=== PATIENT | female | born 1965 | race African-American/Black ===

== ENCOUNTER → 2016-10-27 | Outpatient (CLI) | payer BC ==
--- NOTE | 2016-10-27 16:18 | RAD ---
Right hip, 2 views, 10/27/2016: History: Hip strain No fracture or dislocation is identified. The hip joint space is well-preserved. Lower pelvic calcifications probably represent a combination of phleboliths and perhaps a uterine fibroid calcification. IMPRESSION: No acute right hip abnormality is detected.
== END | disposition home or self-care (01) ==
LOC: RAD 15:40
PROVIDERS: ATTEND Family Medicine
DX: S76.011A Strain of muscle, fascia and tendon of right hip, initial encounter (principal); X58.XXXA Exposure to other specified factors, initial encounter; Y93.89 Activity, other specified; Y92.89 Other specified places as the place of occurrence of the external cause; Y99.8 Other external cause status
CPT/HCPCS: 73502

== ENCOUNTER → 2016-11-17 | Outpatient (CLI) | payer BC ==
--- NOTE | 2016-11-17 12:07 | KCIC ---
MRI of the lumbar spine without contrast 11/17/2016 CLINICAL HISTORY: Low back pain which radiates down the right leg for the last month. TECHNIQUE: Unenhanced T1-weighted, T2-weighted and inversion recovery sagittal and T1 weighted and T2 weighted axial images of the lumbar spine were obtained. FINDINGS: The alignment of the lumbar vertebrae is within normal limits. The patient has transitional vertebral anatomy. For the purposes of this dictation, the transitional vertebrae will be referred to by the letter T. A hypoplastic disc is seen at T-S1. Degenerative signal changes are seen involving the L4-5 and L5-T discs. The marrow signal of the visualized bony structures is within normal limits. The conus medullaris is normal in morphology, position, and signal characteristics. The L1-2, L2-3 and L3-4 disc spaces are within normal limits. At the L4-5 disc space there is mild generalized disc bulge. Degenerative changes are seen involving the facet joints bilaterally. There is moderate ligament flavum hypertrophy bilaterally. These findings when combined result in mild central spinal canal stenosis. No neural foraminal stenosis is seen. At the L5-T disc space there is a mild generalized disc bulge. Degenerative changes involve the facet joints bilaterally. There is mild ligamentum flavum hypertrophy. These findings when combined do not result in significant central spinal canal or neural foraminal stenosis. The T-S1 disc space is within normal limits. IMPRESSION: 1. The patient has transitional vertebral anatomy as outlined above. 2. The changes of degenerative disc disease are seen involving the lower lumbar spine. These findings result in mild central spinal canal stenosis at L4-5. No neural foraminal stenosis is seen. Electronically signed by: Victor M Garza MD (11/17/2016 12:04 PM)
== END | disposition home or self-care (01) ==
LOC: KCIC MRI 08:26
PROVIDERS: ATTEND Family Medicine
DX: M51.16 Intervertebral disc disorders with radiculopathy, lumbar region (principal); M48.06 Spinal stenosis, lumbar region
CPT/HCPCS: 72148

== ENCOUNTER → 2016-12-08 | Outpatient (CLI) | payer BC ==
[~2016-12-08] MED LIST: ASPI-482 PO; ATOR10TA60 PO; IOHEXOL 180 MG/ML 10 ML VIAL. ONE; METF500T9 PO; PANT40TA5 PO; TRIA1TAB3 PO; birth control; methylPREDNISolone ACETATE 40 MG/ML VIAL. ONE; methylPREDNISolone ACETATE 80 MG/ML VIAL. ONE
== END | disposition home or self-care (01) ==
LOC: PNCL 07:57
PROVIDERS: ATTEND Anesthesiology
DX: M51.16 Intervertebral disc disorders with radiculopathy, lumbar region (principal); M48.06 Spinal stenosis, lumbar region
CPT/HCPCS: 62323; J1030; J1040

== ENCOUNTER → 2016-12-22 | Outpatient (CLI) | payer BC ==
--- NOTE | 2016-12-22 10:54 | PAIN ---
DATE OF SERVICE: 12/22/2016 PROGRESS NOTE FOR PAIN CLINIC DIAGNOSES: Lumbar radiculopathy with lumbar spinal stenosis and lumbar degenerative disk disease. HISTORY OF PRESENT ILLNESS: The patient is a 51-year-old female who returns for followup status post lumbar epidural steroid injection x 1. The patient reports about 75% improvement in her low back and right lower extremity pain and is very pleased with her progress thus far. The patient reports she has been increasing activity with greater ease and comfort, has been sleeping better at night, has been performing daily activities with much greater ease. The patient reports she still has some pain in the low back, describes as aching and alternating with sharp pains occasionally and some in the right leg, mostly in the anterior and lateral thigh, rates a 4 on a scale of 10 at its worse. The patient reports no new motor or sensory deficits, no new bowel or bladder incontinence or other complaints. PHYSICAL EXAMINATION: VITAL SIGNS: The patient's blood pressure 133/90, pulse is 90, respirations 18, temperature is 98.1 degrees Fahrenheit and weight is 194 pounds. GENERAL: The patient is awake, alert, oriented, appropriate, very pleasant demeanor. HEENT: Head shows normocephalic, atraumatic. Extraocular movements are intact, symmetrical. Oral cavity, mucous membranes are moist and pink. Dentition is intact. NECK: Shows anterior throat supple without palpable lymphadenopathy noted. Swallow reflex is symmetrical. CHEST: Shows normal on inspection. Breath sounds are clear to auscultation bilaterally. HEART: Shows S1 and S2 clear. ABDOMEN: Obese, soft, nontender, nondistended. No palpable organomegaly. No rebound or guarding demonstrated. BACK: Shows spine grossly in midline, normal-appearing thoracic and lumbar curvatures. Lumbar paraspinous muscle shows only some very mild tenderness with palpation in the lower lumbar distribution bilaterally without radiation. EXTREMITIES: Lower extremities show deep tendon reflexes at 2+ in the patellar, 1+ tendo calcaneus tendons. Motor exam is strong with 5/5 dorsiflexion and extension. Peripheral pulses are 2+. No peripheral edema is noted. Options were discussed with the patient and the patient's old chart was reviewed as her current medication regimen updated. Current review of systems updated today as well. We will proceed with the second in the series of lumbar epidural steroid injection today with fluoroscopic guidance. Risks were again discussed including, but not limited to bleeding, infection, possibility of epidural hematoma, subsequent neurologic compromise, dural puncture, headaches, spinal cord and/or nerve damage, side effects of steroid medication and poor results regarding pain control. The patient understands and wishes to proceed. The patient will return to clinic in approximately 2 weeks for followup. She was counseled on return appointment, activity level and side effects to be aware of. DIAGNOSIS: Lumbar radiculopathy with lumbar spinal stenosis, lumbar degenerative disk disease. PROCEDURE: Lumbar epidural steroid injection in translaminar approach at the L4-L5 level using C-arm fluoroscopic guidance under sterile prep and drape using local anesthetic. MEDICATIONS INJECTED: 120 mg of Depo-Medrol plus 10 mL of preservative-free normal saline and 2 mL of Isovue for contrast. CONDITION AT DISCHARGE: Stable. The patient tolerated procedure well, had no complications. CASSI CEDILLO MD DR: FAN/roderick JOB#: [id number] / [id number]
== END | disposition home or self-care (01) ==
LOC: PNCL 08:26
PROVIDERS: ATTEND Anesthesiology
DX: M51.16 Intervertebral disc disorders with radiculopathy, lumbar region (principal); M48.06 Spinal stenosis, lumbar region
CPT/HCPCS: 62323; J1030; J1040; 62322

== ENCOUNTER → 2018-06-29 | Outpatient (CLI) | payer OTHER ==
[~2018-06-29] MED LIST changes: -IOHEXOL 180 MG/ML 10 ML VIAL. ONE; -methylPREDNISolone ACETATE 40 MG/ML VIAL. ONE; -methylPREDNISolone ACETATE 80 MG/ML VIAL. ONE
--- NOTE | 2018-06-29 15:36 | RAD ---
MR of the left knee Indication: Left knee pain and swelling for 3 months. No known injury.. Technique: Routine multiplanar sequences are obtained. FINDINGS: No evidence of a medial meniscal tear. Mild signal within the lateral meniscus with subtle surface involvement compatible with a tear. There is also distortion of the lateral meniscus. The anterior cruciate ligament and posterior cruciate ligament are intact. Medial collateral ligament is intact. Iliotibial band unremarkable. Fibular collateral ligament, biceps femoris tendon and popliteus tendon are intact. Extensor mechanism is intact. Large joint effusion. No evidence of acute chondral defect. There may be mild chondromalacia at the lateral joint compartment. No bone lesion. No acute fracture. IMPRESSION: 1. Lateral meniscal tear. 2. Large joint effusion. Electronically signed by: Gene Paiz MD (06/29/2018 3:31 PM) [facility]
== END | disposition home or self-care (01) ==
LOC: MRI 14:32
PROVIDERS: ATTEND Orthopaedic Surgery
DX: S83.282A Other tear of lateral meniscus, current injury, left knee, initial encounter (principal); X58.XXXA Exposure to other specified factors, initial encounter; Y93.89 Activity, other specified; Y92.89 Other specified places as the place of occurrence of the external cause; Y99.8 Other external cause status
CPT/HCPCS: 73721

== ENCOUNTER → 2018-08-30 | Day surgery (SDC) | payer OTHER ==
[~2018-08-30] VITALS: Ht 157.5 cm; Wt 84.4 kg
[~2018-08-30] MED LIST changes: +ALBU2.5V8 INH; +BUPIVAC MPF-EPI 0.5%-1:200000 30 ML VIAL. ONE; +DEXAMETHASONE SOD PHOS 20 MG/5 ML VIAL. ONE; +FAMOTIDINE 20 MG/2 ML VIAL ONE; +HYDR-3165 PO; +HYDROcodone/APAP 7.5/325MG 1 TAB TABLET PO ONE; +HYDROmorphone 2 MG/ML VIAL IV PRN; +IV RINGERS,LACTATED 1000ML 1,000 ML IV SCH; +LIDOCAINE 2% PF 5 ML VIAL. ONE; +MIDAZOLAM HCL/PF 2 MG/2 ML VIAL. ONE; +MORPHINE SULFATE 2 MG/ML VIAL. IV PRN; +ONDANSETRON PF 4 MG/2 ML VIAL. IV PRN; +ONDANSETRON PF 4 MG/2 ML VIAL. ONE; +PROCHLORPERAZINE 10 MG/2 ML VIAL. IV PRN; +PROPOFOL 20 ML IV ONE; +SEVOFLURANE 31 TO 60 MINUTES. IH ONE; +ZOLP5TAB PO; +ceFAZolin SODIUM 1 GM VIAL ONE; +fentaNYL PF VIAL 100 MCG/2 ML VIAL IV PRN; +fentaNYL PF VIAL 100 MCG/2 ML VIAL ONE; +hydrALAZINE 20 MG/ML VIAL. ONE
--- NOTE | 2018-08-30 11:50 | DISCH ---
DISCHARGE INSTRUCTIONS Condition on Discharge Condition on Discharge: Stable Activity After Discharge Activity Instructions for Disc: Other, see below (slowly advance to normal activity as tolerated) Weight Bearing Status after Di: Full weight bearing Diet after Discharge Diet after Discharge: Regular Wound Incision Care Wound/Incision Care: Change dressing (remove dressing in 2 days may then shower ) Contacting the after DC Call your doctor for: Concerns you may have Follow-Up Follow up with: Nicko 1 week ALINA JAMES MD Aug 30, 2018 11:50
--- NOTE | 2018-08-30 11:57 | PDOC4 ---
Operative Note Operative Note Date of surgery: 08/30/2018 Preoperative diagnosis: Lateral meniscus tear left knee Postoperative diagnosis: Same plus medial meniscus tear posterior horn Operative procedure: Left knee arthroscopy partial medial and lateral meniscectomy Surgeon: Nicko Anesthesia: Gen. Estimated blood loss: 5 mL Complications: None Operative indications: Patient is a 53-year-old female with pain and mechanical symptoms and a documented meniscal tear on MRI. I had reviewed with her risks benefits postoperative course of possible operative treatment the structure function of the meniscus rationale for operative treatment recovery process possibility of infection continued pain nerve or blood vessel damage medical or other anesthetic complications among others all her questions were answered she agrees to proceed with operative evaluation and treatment Operative text: Patient was identified procedure verified patient placed in the supine position on the operating table. After adequate amounts of general anesthesia were administered the left lower extremity was prepped and draped in standard sterile fashion with a thigh tourniquet. After timeout was performed patient procedure identified and verified the left lower extremity was exsanguinated with Esmarch bandage a lateral portal was established a medial portal established using spinal needle localization and the knee joint was systematically examined. Patellofemoral articulation was noted to be in good condition no loose bodies noted in the gutters or suprapatellar pouch she did have a displaceable tear posterior horn of the medial meniscus which was trimmed back and radiused to a stable rim of tissue affecting about 50% of the inner rim of the meniscus. ACL was probed and found to be intact as were the medial and lateral compartment articular cartilage. She did have a tear of the undersurface in the body of the lateral meniscus and some free edge fraying extending into the anterior and posterior horns which was trimmed back to stable tissue with arthroscopic punch and shaver. A stable rim of meniscal tissue was restored with only about 20% resection in the body area tapering toward the anterior and posterior horns. All cartilage fragments were evacuated with arthroscopic shaver joint was drained of arthroscopic fluid portal areas and fat pad were injected with have percent plain Marcaine portals were closed with nylon suture sterile dressings were applied toes were noted be warm pink find deflation of tourniquet patient was returned recovery room in stable condition having tolerated procedure well ALINA JAMES MD Aug 30, 2018 11:57
[2018-08-30] MEDS: fentaNYL PF VIAL 100 MCG/2 ML VIAL IV PRN ×2 (12:01→12:18)
[2018-08-30 13:30] VITALS: BP 132/82
== END | disposition home or self-care (01) ==
LOC: SURG 07:32
PROVIDERS: ATTEND Orthopaedic Surgery
DX: S83.282A Other tear of lateral meniscus, current injury, left knee, initial encounter (principal); S83.242A Other tear of medial meniscus, current injury, left knee, initial encounter; Z90.49 Acquired absence of other specified parts of digestive tract; I10 Essential (primary) hypertension; E78.5 Hyperlipidemia, unspecified; K21.9 Gastro-esophageal reflux disease without esophagitis; E11.9 Type 2 diabetes mellitus without complications; M19.90 Unspecified osteoarthritis, unspecified site; Z98.890 Other specified postprocedural states; Z87.891 Personal history of nicotine dependence; Z72.89 Other problems related to lifestyle; Z79.899 Other long term (current) drug therapy; X58.XXXA Exposure to other specified factors, initial encounter; Y93.89 Activity, other specified; Y92.89 Other specified places as the place of occurrence of the external cause; Y99.8 Other external cause status; Z79.84 Long term (current) use of oral hypoglycemic drugs
CPT/HCPCS: 29880; 82962; A7015; C1782; J0360; J0690; J0780; J1100; J2001; J2250; J2405; J2704; J3010; J3490; J7120